=== PATIENT | male | born 2000 ===

== ENCOUNTER 2018-04-13 16:29 | Emergency (ER) | payer OTHER | END 2018-04-13 17:20 | disposition home or self-care (01) | LOC: ERS 16:29 | DX: K04.7 Periapical abscess without sinus (principal); H10.9 Unspecified conjunctivitis | CPT/HCPCS: 41800 ==

== ENCOUNTER 2018-04-15 21:10 | Emergency (ER) | payer OTHER ==
[2018-04-15] MEDS ORDERED: Proparacaine 0.5% Opth 15 ML BOT ONE (22:30)
[2018-04-15] MEDS ORDERED: Fluorescein Opthalmic Strip ONE (22:30)
== END 2018-04-15 22:40 | disposition home or self-care (01) ==
LOC: ERS 21:10
DX: H10.9 Unspecified conjunctivitis (principal)
CPT/HCPCS: 99282